=== PATIENT | male | born 1980 | race Caucasian/White ===

== ENCOUNTER 2022-01-08 17:04 | Emergency (ER) | payer SELFPAY ==
[2022-01-08 17:08] VITALS: BP 144/78; PULSE 111; RESP 14; TEMP 36.9; O2SAT 97; BMI 23.6
--- NOTE | 2022-01-08 17:11 | XRR_ITS ---
PROCEDURE INFORMATION: Exam: XR Right Shoulder Exam date and time: 01/08/2022 5:16 PM Age: 41 years old Clinical indication: Injury or trauma; Fall; Blunt trauma (contusions or hematomas); Shoulder; Right TECHNIQUE: Imaging protocol: Radiologic exam of the Right shoulder. Views: 2 or more views. COMPARISON: No relevant prior studies available. FINDINGS: Bones/joints: No clear evidence of fracture or dislocation. Soft tissues: Normal. XR/XR shoulder RT min 2V* [id number] IMPRESSION: No clear evidence of fracture or dislocation.
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
--- NOTE | 2022-01-10 12:22 | DCPLANNER ---
Addendum entered by Claudia Lozano 01/13/22 08:14: hims manager received the following message from the front office staff at [facility] regarding follow up appointment: The number listed is his fathers. There is nothing in the chart to state whether I am able to speak with the father to set up an appt. The father stated he will have the patient call us back to schedule with GRE TUTOR Vivek Li. binder caser also left message with patients father for patient to call and schedule an appointment. Original Note: hims manager had message to schedule a follow up appointment for patient with ortho. hims manager sent patients information to the front office staff at [facility]. Patients information will be printed and reviewed. Clinic will call patient with appointment information.
--- NOTE | 2022-01-10 12:44 | DCPLANNER ---
Addendum entered by Claudia Lozano 01/11/22 15:02: patient case manager called Dr. Damico office to confirm that clinic received patients information, clinic has received patients and has tried to reach patient. Original Note: patient case manager had message to schedule a follow up appointment for patient with Dr. Damico. patient case manager faxed patients information to the office of Dr. Damico. Patients information will be reviewed. Clinic will call patient with appointment information.
== END 2022-01-08 18:08 | disposition home or self-care (01) ==
PROVIDERS: Emergency Provider Emergency Medicine
DX: M25.511 Pain in right shoulder (principal); S43.401A Unspecified sprain of right shoulder joint, initial encounter; V86.56XA Driver of dirt bike or motor/cross bike injured in nontraffic accident, initial encounter
CPT/HCPCS: 73030; 99283

== ENCOUNTER 2022-02-05 01:11 | Emergency (ER) | payer SELFPAY ==
[2022-02-05 01:20] VITALS: BP 124/95; PULSE 96; RESP 14; TEMP 36.6; O2SAT 99
--- NOTE | 2022-02-05 01:30 | ED_ITS ---
HPI - Altered Mental Status General: Chief Complaint: Altered Mental Status Stated Complaint: AMS Time Seen by Provider: 02/05/22 01:23 History of Present Illness: Patient is a 41-year-old male who comes to the ED via EMS in police custody. Patient was apprehended by [employer] because he was at a slot machine and fell asleep. patient had a warrant out for his arrest. Police brought here to the ED for medical clearance. Patient says he took a pill that one of his friends gave him to help with his back pain. He is unsure what pill was and says he only took 1 tablet. Currently he just feels really sleepy. Denies any falls, traumas or head injury. Denies any SI or any thoughts of harming himself. Patient has no other complaints at this time. Review of Systems Const: Reports: fatigue (Feels drowsy and sleepy); Denies: fever(s) or chills Eyes: Denies: change in vision or eye discomfort ENMT: Denies: throat pain, odynophagia, nasal discharge or nasal congestion Card: Denies: chest pain, palpitations, edema, swelling of feet/ankles, dyspnea on exertion or orthopnea Resp: Denies: dyspnea, productive cough or non-productive cough GI: Denies: abdominal pain, nausea, vomiting, diarrhea, constipation or hematochezia : Denies: flank pain, difficulty urinating, dysuria or hematuria Musc: Denies: neck pain, back pain or extremity swelling Skin/Breast: Denies: rash or new lesions Neuro: Denies: headache(s), numbness in extremities or weakness in extremities [facility] ED PFSH: Medical History No pertinent past medical history Surgical History No pertinent past surgical history Physical Exam Narrative: Patient is alert and oriented x3. He is answering all my questions accordingly. He was able to ambulate around the room without any difficulty. Const: COMMON NORMALS: no acute distress, patient oriented x3 and alert GENERAL APPEARANCE: cooperative and comfortable HENMT: COMMON NORMALS: atraumatic HEAD & SCALP: normal to inspection and atraumatic; no Leong's sign and no raccoon eyes Eye: COMMON NORMALS: Equal, round and reactive pupils present, EOMs intact bilaterally and conjunctivae normal CONJUNCTIVA: Yes conjunctivae normal PUPIL: Yes Equal, round and reactive pupils present Resp: COMMON NORMALS: normal respiratory effort and clear to auscultation bilaterally AUSCULTATION: clear to auscultation bilaterally Cardio: COMMON NORMALS: regular rate, regular rhythm, S1 normal heart sound present, S2 normal heart sound present, No gallops present (Cardio), No clicks present (Cardio), No murmurs present (Cardio) and Peripheral pulses 2+ throughout RATE: regular rate RHYTHM: regular rhythm HEART SOUNDS: S1 normal heart sound present and S2 normal heart sound present PERIPHERAL PULSES: Peripheral pulses 2+ throughout GI: COMMON NORMALS: Normal to inspection, nondistended, normoactive bowel sounds present, Soft to palpation and non-tender PALPATION: Yes Soft to palpation : COMMON NORMALS: Yes no CVA tenderness BLADDER/KIDNEY EXAM: Yes no CVA tenderness Back/Pelvis: COMMON NORMALS: no CVA tenderness Extremity: COMMON NORMALS: normal to inspection Neuro: COMMON NORMALS: patient oriented x3, CN's II-XII intact bilaterally, moves all extremities, no focal motor deficits, no sensory deficits noted and gait normal SENSORIUM/ORIENTATION: Yes alert COORDINATION/BALANCE: [id number]-[id number] test normal SPEECH: speech normal GAIT: Yes Normal gait present COORDINATION: [id number]-[id number]-[id number] test normal Psych: COMMON NORMALS: mental status grossly normal, cooperative, speech normal and denies suicidal ideation APPEARANCE: Yes other (Patient appears dirty and unkept.) SPEECH: Yes normal speech THOUGHT CONTENT: No Suicidality present Skin: GENERAL SKIN EXAM: dry skin Course Vital Signs: Vital signs: Vital Signs Temperature 97.9 F 02/05/22 01:20 Pulse Rate 96 02/05/22 01:20 Respiratory Rate 14 02/05/22 01:20 Blood Pressure 124/95 02/05/22 01:20 Pulse Oximetry 99 02/05/22 01:20 Oxygen Delivery Me thod 02/05/22 01:20 MDM - Altered Mental Status Medical Decision Making Patient is a 41-year-old male comes to the ED via EMS in police custody for medical clearance. Patient was apprehended by [employer] because he was at a slot machine and fell asleep. patient had a warrant out for his arrest. Patient says he took a pill that one of his friends gave him to help with his back pain. He is unsure what pill was and says he only took 1 tablet. Currently he just feels really sleepy. Denies any falls, traumas or head injury. Denies any SI or any thoughts of harming himself. Patient has no other complaints at this time. Vitals are stable. Patient is alert and oriented x3. No signs of any head trauma. He is able to answer all my questions accordingly was ambulating normally without any assistance. Rest of his exam including neuro exam was benign. CBC, CMP and UA were unremarkable.Sinus rhythm, 88 bpm, no ST segment elevation or depression seen. Blood alcohol level was below 10. Salicylate and acetaminophen levels normal. Urine drug screen was positive for amphetamines and marijuana. Patient was stable for discharge. He was diagnosed with medical clearance for patient hold. He was in police custody when discharged from ED. Lab Data I reviewed the patient's lab results. : 02/05/22 01:40 02/05/22 01:40 Laboratory Results WBC 7.5 10^3/uL (4.0-10.0) 02/05/22 01:40 RBC 4.45 10^6/uL (4.1-5.3) 02/05/22 01:40 Hgb 13.1 g/dL (11.7-16.6) 02/05/22 01:40 Hct 39.3 % (42.0-52.0) L 02/05/22 01:40 MCV 88.3 fl (80-94) 02/05/22 01:40 MCH 29.4 pg (28.0-34.0) 02/05/22 01:40 MCHC 33.3 g/dL (30.0-36.0) 02/05/22 01:40 RDW 14.0 % (12.1-15.1) 02/05/22 01:40 Plt Count 299 10^3/cmm (130-400) 02/05/22 01:40 MPV 9.5 fL (7.4-10.4) 02/05/22 01:40 Neut % (Auto) 60.0 % 02/05/22 01:40 Lymph % (Auto) 27.4 % 02/05/22 01:40 Benzie % (Auto) 6.7 % 02/05/22 01:40 Eos % (Auto) 4.7 % 02/05/22 01:40 Baso % (Auto) 0.8 % 02/05/22 01:40 Neut # (Auto) 4.51 10^3/uL (1.8-7.7) 02/05/22 01:40 Lymph # (Auto) 2.1 10^3/uL (0.8-4.8) 02/05/22 01:40 Benzie # (Auto) 0.5 10^3/uL (0.2-0.9) 02/05/22 01:40 Eos # (Auto) 0.4 10^3/uL (0.0-0.8) 02/05/22 01:40 Baso # (Auto) 0.1 10^3/uL (0.0-0.1) 02/05/22 01:40 Nucleated RBC % (auto) 0 % 02/05/22 01:40 Nucleated RBCs # 0.0 /100WBC 02/05/22 01:40 Sodium 138 mmol/L (136-145) 02/05/22 01:40 Potassium 3.6 mmol/L (3.5-5.1) 02/05/22 01:40 Chloride 100 mmol/L (98-107) 02/05/22 01:40 Carbon Dioxide 28 mmol/L (22-29) 02/05/22 01:40 Anion Gap 13.6 (5-19) 02/05/22 01:40 BUN 20 mg/dL (6-20) 02/05/22 01:40 Creatinine 1.4 mg/dL (0.7-1.2) H 02/05/22 01:40 GFR Calculation 56.1 mL/min (90-130) L 02/05/22 01:40 Glucose 95 mg/dL (65-115) 02/05/22 01:40 POC Glucose 101 mg/dL (70-110) 02/05/22 01:37 Calculated Osmolality 288 mOsm/kg (285-295) 02/05/22 01:40 Calcium 9.5 mg/dL (8.5-10.5) 02/05/22 01:40 Total Bilirubin 0.3 mg/dL (0.15-1.2) 02/05/22 01:40 AST 26 U/L (0-40) 02/05/22 01:40 ALT 32 U/L (0-41) 02/05/22 01:40 Alkaline Phosphatase 93 U/L (40-130) 02/05/22 01:40 Total Protein 7.3 g/dL (6.6-8.7) 02/05/22 01:40 Albumin 4.1 g/dL (3.5-5.2) 02/05/22 01:40 Globulin 3.2 g/dL (1.3-4.6) 02/05/22 01:40 Urine Color Yellow (Yellow) 02/05/22 01:45 Urine Appearance Clear (CLEAR) 02/05/22 01:45 Urine pH 6 (5-7) 02/05/22 01:45 Ur Specific Hoffman 1.025 (1.005-1.030) 02/05/22 01:45 Urine Protein Neg (Negative) 02/05/22 01:45 Urine Glucose (UA) Norm (Normal) 02/05/22 01:45 Urine Ketones Negative (Negative) 02/05/22 01:45 Urine Blood Neg (Negative) 02/05/22 01:45 Urine Nitrate Negative (Negative) 02/05/22 01:45 Urine Bilirubin Neg (Negative) 02/05/22 01:45 Urine Urobilinogen 4 mg/dL (Negative) H 02/05/22 01:45 Ur Leukocyte Esterase Negative (Negative) 02/05/22 01:45 Salicylates < 0.3 mg/dL (3-10) L 02/05/22 01:40 Urine Opiates Screen Negative ng/mL (Negative) 02/05/22 01:45 Acetaminophen < 5.0 ug/mL (10-30) L 02/05/22 01:40 Ur Barbiturates Screen Negative ng/mL (Negative) 02/05/22 01:45 Ur Phencyclidine Scrn Negative ng/mL (Negative) 02/05/22 01:45 Ur Amphetamines Screen Positive ng/mL (Negative) H 02/05/22 01:45 U Benzodiazepines Scrn Negative ng/mL (Negative) 02/05/22 01:45 Urine Cocaine Screen Negative ng/mL (Negative) 02/05/22 01:45 U Marijuana (THC) Screen Positive ng/mL (Negative) H 02/05/22 01:45 Ethyl Alcohol < 10 mg/dL (0-10) 02/05/22 01:40 EKG Data EKG 1: EKG interpretation date: 02/05/22 Interpretation: Sinus rhythm, 88 bpm, no ST segment elevation or depression seen. Discharge Plan Discharge Patient Disposition: Home Clinical Impression: Encounter for medical clearance for patient hold Condition: Stable Discharge Orders: Discharge ED (Routine); Ordered 02/05/22 Ordered By: Derrick Olguin Discharge Diet: Regular Discharge Activity: Increase activity as tolerated Activity Restrictions/Additional Instructions: Follow-up with medical provider as directed in the next 7 to 10 days for reevaluation. Return to the ER or your medical provider if condition worsens. Please read and understand discharge instructions. Thank you for choosing [facility] for your healthcare needs today. Please realize this is an emergency room and that we are providing you with a medical screening exam and this may not be complete and all inclusive of all the testing and or work up that you may need to determine your ailment or severity of your illness. It is very important that you follow up as instructed or that you return to the Emergency Department should you have concerns or if your condition changes or worsens in any way. Coding Level of Care Code ED Curator for Chg Fwd Exam Comprehensive
--- NOTE | 2022-02-05 01:31 | XRR_ITS ---
PROCEDURE INFORMATION: Exam: XR Chest Exam date and time: 02/05/2022 1:39 AM Age: 41 years old Clinical indication: Other: Fatigue TECHNIQUE: Imaging protocol: Radiologic exam of the chest. Views: 1 view. COMPARISON: CR XR shoulder RT min 2V* [id number] 01/08/2022 5:16 PM FINDINGS: Lungs: Unremarkable. No consolidation. Pleural spaces: Unremarkable. No pleural effusion. No pneumothorax. Heart/Mediastinum: Unremarkable. No cardiomegaly. Bones/joints: Unremarkable. XR/XR chest 1V portable [id number] IMPRESSION: No acute findings.
[2022-02-05 01:41] LABS: Glucose Point of Care 101 mg/dL (70-110)
[2022-02-05 01:46] LABS: Basophils # 0.1 10^3/uL (0.0-0.1); Basophils % 0.8 %; Eosinophils # 0.4 10^3/uL (0.0-0.8); Eosinophils % 4.7 %; Hematocrit 39.3 % (42.0-52.0); Hemoglobin 13.1 g/dL (11.7-16.6); Lymphocytes # 2.1 10^3/uL (0.8-4.8); Lymphocytes % 27.4 %; Mean Corpuscular HGB Conc 33.3 g/dL (30.0-36.0); Mean Corpuscular Hemoglobin 29.4 pg (28.0-34.0); Mean Corpuscular Volume 88.3 fl (80-94); Mean Platelet Volume 9.5 fL (7.4-10.4); Monocytes # 0.5 10^3/uL (0.2-0.9); Monocytes % 6.7 %; Neutrophils # 4.51 10^3/uL (1.8-7.7); Nucleated Red Blood Cells % 0 %; Platelet Count 299 10^3/cmm (130-400); Red Blood Count 4.45 10^6/uL (4.1-5.3); White Blood Count 7.5 10^3/uL (4.0-10.0)
[2022-02-05 01:51] LABS: Add Urine Microscopic? NO; Charge for UA Resulting for Rev
[2022-02-05 02:03] LABS: Amphetamines Screen Urine Positive (Negative); Barbiturates Screen Urine Negative (Negative); Benzodiazepines Screen Urine Negative (Negative); Cocaine Screen Urine Negative (Negative); Opiate Screen Urine Negative (Negative); PCP Screen Urine Negative (Negative); THC Screen Urine Positive (Negative)
[2022-02-05 02:04] LABS: Bilirubin Urine Neg (Negative); Blood Urine Neg (Negative); Glucose Urine UA Norm (Normal); Ketones Urine Negative (Negative); Nitrate Urine Negative (Negative); Protein Urine Neg (Negative); Specific Gravity, Urine 1.025 (1.005-1.030); Urine Appearance Clear (CLEAR); Urine Color Yellow (Yellow); pH Urine 6 (5-7)
[2022-02-05 02:05] LABS: Leukocyte Esterase Urine Negative (Negative); Urobilinogen Urine 4 mg/dL (Negative)
[2022-02-05 02:15] LABS: Alanine Aminotransferase 32 U/L (0-41); Albumin Level 4.1 g/dL (3.5-5.2); Alkaline Phosphatase 93 U/L (40-130); Anion Gap 13.6 (5-19); Aspartate Amino Transferase 26 U/L (0-40); Blood Urea Nitrogen 20 mg/dL (6-20); Calcium 9.5 mg/dL (8.5-10.5); Carbon Dioxide 28 mmol/L (22-29); Chloride 100 mmol/L (98-107); Globulin 3.2 g/dL (1.3-4.6); Glomerular Filtration Rate 56.1 mL/min (90-130); Glucose 95 mg/dL (65-115); Osmolality Calculated 288 mOsm/kg (285-295); Potassium 3.6 mmol/L (3.5-5.1); Sodium 138 mmol/L (136-145); Total Bilirubin 0.3 mg/dL (0.15-1.2); Total Protein 7.3 g/dL (6.6-8.7)
[2022-02-05 02:17] LABS: Acetaminophen < 5.0 ug/mL (10-30); Alcohol Level < 10 mg/dL (0-10); Salicylate < 0.3 mg/dL (3-10)
[2022-02-05 02:22] VITALS: BP 135/93; PULSE 92; RESP 15
[2022-02-05 02:33] VITALS: BP 135/93; PULSE 92; RESP 15
== END 2022-02-05 02:36 | disposition home or self-care (01) ==
PROVIDERS: Emergency Provider Physician Assistant
DX: Z02.89 Encounter for other administrative examinations (principal)
CPT/HCPCS: 36416; 71045; 80053; 80306; 80307; 81003; 82962; 85025; 99284

== ENCOUNTER 2022-02-10 14:20 | Emergency (ER) | payer SELFPAY ==
[2022-02-10 14:28] VITALS: BP 120/93; PULSE 104; RESP 18; O2SAT 96; BMI 23.6
--- NOTE | 2022-02-10 14:29 | W.ED.FALL ---
HPI - Fall General: Chief Complaint: Fall Stated Complaint: fall in shower /prisoner [place] police dept Time Seen by Provider: 02/10/22 14:28 History of Present Illness: Mr. Ayon is a 41-year-old male presenting from care home secondary to fall. He reports slipping on a metal shower due to soap. He struck the right side of his head but denies loss of consciousness. Since that time has had mild headache, nausea, and generalized unwell feeling. No focal neuro symptoms reported. No chest pain or shortness of breath. No other specific changes in health, exacerbating, or alleviating factors identified. Onset (ago): minute(s) Fall from: standing Place fall occurred: other Prolonged down time: no Symptoms prior to fall: none Context: tripped/slipped Location of injury: head Severity: mild Review of Systems General: Reports: 10 or more systems reviewed and unremarkable except in HPI and below PFSH ED PFSH: Medical History No pertinent past medical history Surgical History No pertinent past surgical history Physical Exam Const: COMMON NORMALS: alert GENERAL APPEARANCE: cooperative and well developed HENMT: COMMON NORMALS: normocephalic and atraumatic HEAD & SCALP: normocephalic and atraumatic THROAT: posterior oropharynx normal OTHER: No ann signs or raccoon eyes. No hemotympanum. No otorrhea or rhinorrhea. Jaw alignment normal. Dentition baseline. No obvious bony step-offs. No septal hematoma. No evidence of ocular entrapment. Eye: COMMON NORMALS: conjunctivae normal CONJUNCTIVA: Yes conjunctivae normal SCLERA: sclerae normal Neck/C-Spine: COMMON NORMALS: supple GENERAL: Yes trachea midline CERVICAL SPINE: Yes cervical ROM normal and No Cervical spine tenderness Resp: COMMON NORMALS: normal respiratory effort EFFORT & INSPECTION: Yes able to speak in complete sentences Cardio: COMMON NORMALS: regular rate and regular rhythm RATE: regular rate RHYTHM: regular rhythm GI: COMMON NORMALS: Soft to palpation PALPATION: Yes Soft to palpation and No Tenderness to palpation present (GI) PERCUSSION: normal to percussion Extremity: GENERAL: Yes normal exam except as noted and No edema Neuro: COMMON NORMALS: moves all extremities SENSORIUM/ORIENTATION: Yes alert and No Orientation impaired Psych: COMMON NORMALS: mental status grossly normal and Normal thought process present THOUGHT PROCESS: Normal thought process present Course Vital Signs: Vital signs: Vital Signs Pulse Rate 104 H 02/10/22 14:28 Respiratory Rate 18 02/10/22 14:28 Blood Pressure 120/93 02/10/22 14:28 Pulse Oximetry 96 02/10/22 14:28 Oxygen Delivery Me thod 02/10/22 14:28 MDM - Fall Medical Decision Making 41-year-old gentleman presenting due to fall with head strike and associated close head injury symptoms. No focal neurologic episodes appreciated on exam. Mild tachycardia but otherwise vitally satisfactory. No lacerations or repairable injuries identified on head to toe exam. Prior laboratory studies reviewed. CT head negative for acute intracranial pathology or trauma. Patient improved with Zofran. Satisfactory for continued outpatient management. Most likely cause of patient's symptoms is fall with closed head injury. The results of ED evaluation were discussed with the patient including prescriptions and/or symptomatic cares (if applicable) including appropriate and responsible use, followup plan, and return precautions. The patient verbalized understanding and felt safe for discharge. Patient discharged in law enforcement custody. Medical Records I reviewed the patient's medical records. Lab Data I reviewed the patient's lab results. Radiology Impressions Head CT 02/10/22 14:43 IMPRESSION: 1. No evidence of intracranial hemorrhage or mass effect. 2. No acute intracranial findings. Discharge Plan Discharge Patient Disposition: Home Clinical Impression: Fall, Closed head injury Condition: Stable Prescriptions: New ondansetron HCl 4 mg tablet 4 mg PO Q8H PRN (Reason: nausea and vomiting) Qty: 10 0RF Discharge Orders: Discharge ED (Routine); Ordered 02/10/22 Ordered By: Chago Scales Discharge Diet: Usual diet Discharge Activity: Increase activity as tolerated Patient Instructions: Head Injury (ED) Activity Restrictions/Additional Instructions: Thank you for visiting the emergency department. You were seen and evaluated for fall with head injury. No acute fractures or injury were identified on CT imaging. I will prescribe medication for nausea. In addition you may use Tylenol and/or ibuprofen or other NSAID however please do not exceed the daily recommended dosage as directed on the packaging. Return to the emergency department as needed. Coding Level of Care Code ED Etcher Photoengraving for Rai Fwd Exam Comprehensive
--- NOTE | 2022-02-10 14:43 | CT_ITS ---
WS: [id number] CT HEAD TECHNIQUE: Noncontrast CT of the head obtained from the skullbase to the vertex. CLINICAL INFORMATION: fall, r sided head injury, nausea COMPARISON: 2018 DLP: 1149.[address] scans at [facility] use at least one of these dose optimization techniques: automated e xposure control; mA and/or kV adjustment per patient size (includes targeted exams where dose is matc hed to clinical indication); or iterative reconstruction. FINDINGS: No evidence of intracranial hemorrhage or mass effect. Ventricular system and basal cisterns are herrera nt. No extra-axial fluid collections. No evidence of mass or mass effect. Normal freitas-white different iation. Paranasal sinuses and mastoid air cells are well aerated. .Normal visualized soft tissues. CT/CT head wo con* [id number] IMPRESSION: 1. No evidence of intracranial hemorrhage or mass effect. 2. No acute intracranial findings.
[2022-02-10] MEDS: ondansetron 2 mg/ML SDV 2 mL 4 MG IM (14:56)
[2022-02-10] MEDS: nicotine 14 mg Patch 1 PATCH TRANSDERMA (16:05)
== END 2022-02-10 16:09 | disposition home or self-care (01) ==
PROVIDERS: Emergency Provider Emergency Medicine
DX: S09.8XXA Other specified injuries of head, initial encounter (principal); W18.2XXA Fall in (into) shower or empty bathtub, initial encounter; Y92.142 Bathroom in prison as the place of occurrence of the external cause
CPT/HCPCS: 70450; 96372; 99284; J2405

== ENCOUNTER 2022-03-24 20:48 | Emergency (ER) | payer SELFPAY ==
[2022-03-24 20:54] VITALS: BP 154/95; PULSE 117; RESP 16; TEMP 36.8; O2SAT 99; BMI 23.6
[2022-03-24 21:08] VITALS: BP 135/89; RESP 18; O2SAT 96
--- NOTE | 2022-03-24 21:34 | XRR_ITS ---
PROCEDURE INFORMATION: Exam: XR Left Hand Exam date and time: 03/24/2022 9:42 PM Age: 41 years old Clinical indication: Injury or trauma; Other: Smashed; Fracture, traumatic injury; Closed fracture; Left; Index finger; Additional info: Finger injury TECHNIQUE: Imaging protocol: Radiologic exam of the Left hand. Views: 3 or more views. COMPARISON: No relevant prior studies available. FINDINGS: Bones/joints: Comminuted displaced fracture in the terminal tuft of the index finger. The other bones are intact. Soft tissues: Soft tissue injury in the distal index finger. XR/XR hand LT min 3V* [id number] IMPRESSION: Comminuted displaced fracture in the terminal tuft of the index finger.
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
[2022-03-24 23:22] VITALS: RESP 18
[2022-03-24] MEDS: oxyCODONE 10 mg ER (12 HR) Tablet PO (23:22)
[2022-03-24] MEDS: tetanus-dipt-pertussis 0.5 mL SDV IM (23:23)
[2022-03-24] MEDS: cephALEXin 500 mg Capsule PO (23:23)
--- NOTE | 2022-03-25 10:13 | DCPLANNER ---
Addendum entered by Claudia Lozano 04/14/22 10:54: Patient had a follow up appointment scheduled with ortho - patient did not attend appointment. Addendum entered by Claudia Lozano 04/01/22 14:31: Patient has a follow up appointment scheduled for Monday, April 11, 2022 at 1:00 with Vivek at ortho. Clinic will daina patient with appointment information. Original Note: revenue accounting manager had message to schedule a follow up appointment for patient with ortho. revenue accounting manager sent patients information to the front office staff at ortho. Patients information will be printed and reviewed. Clinic will call patient with appointment information.
== END 2022-03-25 00:23 | disposition home or self-care (01) ==
PROVIDERS: Emergency Provider Emergency Medicine
DX: S62.631B Displaced fracture of distal phalanx of left index finger, initial encounter for open fracture (principal); S61.301A Unspecified open wound of left index finger with damage to nail, initial encounter; W23.0XXA Caught, crushed, jammed, or pinched between moving objects, initial encounter; Z23 Encounter for immunization
CPT/HCPCS: 73130; 90471; 90715; 99283

== ENCOUNTER 2024-08-09 07:26 | Emergency (ER) | payer MEDICAID, SELFPAY ==
[2024-08-09 07:31] VITALS: BP 139/88; PULSE 88; RESP 17; TEMP 36.6; O2SAT 95; BMI 25.1
--- NOTE | 2024-08-09 07:44 | W.ED.SKABFB ---
HPI - Skin/Abscess/Foreign Bdy General: Chief complaint: Skin/Abscess/Foreign Body Stated complaint: needs object taken out of left ear Time Seen by Provider: 08/09/24 07:34 History of Present Illness: 43-year-old male presents emergency room complaining of a foreign body in the left ear canal. He said he fell asleep with earbuds in his ear and went to get out he could not find the tip of the earbud he was concerned it had come loose from the device and remained it within his ear. No drainage from the ear mild discomfort Related Data Home Medications ?Medication ?Instructions ?Recorded ?Confirmed No Known Home Medications 08/09/24 08/09/24 Allergies Allergy/AdvReac Type Severity Reaction Status Date / Time No Known Allergies Allergy Verified 05/13/24 13:04 [facility] ED PFS: Medical History (Updated 08/09/24 @ 07:39 by Dameon Mae DO) Vision loss, right eye Cataract associated with other syndromes No pertinent past medical history Surgical History No pertinent past surgical history Social History Smoking and tobacco/nicotine status: current every day tobacco/nicotine user Substance/Drug Use: unknown Physical Exam HENMT: OTHER: Extraocular Couse bilaterally are clear TMs show scarring from previous tympanostomy tubes with no signs of infection. There is a small area of excoriation on the anterior wall of the external auditory canal no active bleeding no hematoma there is no sign of infection no drainage erythema or edema. Right TM and extractor canal are also clear there is also scarring on the TM from previous tympanostomy tubes with no sign of infection Course Vital Signs: Vital signs: Vital Signs Temperature 97.8 F 08/09/24 07:31 Pulse Rate 88 08/09/24 07:31 Respiratory Rate 17 08/09/24 07:31 Blood Pressure 139/88 08/09/24 07:31 Pulse Oximetry 95 08/09/24 07:31 Oxygen Delivery Me thod Room Air 08/09/24 07:31 MDM - Skin/Abscess/Foreign Bdy Medicial Decision Making No retained foreign body in the ear. Does appear was a slight excoriation but there is no sign of infection at this time follow-up as needed No radiology studies performed this visit Discharge Plan Discharge Patient Disposition: Home Clinical Impression: No problem, feared complaint unfounded Condition: Stable Prescriptions: No Action No Known Home Medications Discharge Orders: Discharge ED (Routine); Ordered 08/09/24 Ordered By: Dameon Mae Discharge Diet: Usual diet Discharge Activity: Resume usual activity Patient Instructions: Opioid Safety, Pain Management Activity Restrictions/Additional Instructions: Thank you for choosing [facility] for your healthcare needs today. It is very important that you follow up as instructed or that you return to the Emergency Department should you have concerns or if your condition changes or worsens in any way. You were seen in the emergency room with complaints of possible foreign body in the ear. There was slight excoriation in the left ear but no foreign body. No foreign body was noted in the left ear either. Print Language: Cypriot Coding Level of Care Code ED Photo Retoucher for Rai Busch
[2024-08-09 07:55] VITALS: BP 126/84; PULSE 86; O2SAT 97
== END 2024-08-09 07:55 | disposition home or self-care (01) ==
PROVIDERS: Emergency Provider Family Medicine
DX: Z03.89 Encounter for observation for other suspected diseases and conditions ruled out (principal)
CPT/HCPCS: 99281